=== PATIENT | female | born 1965 | race Caucasian/White ===

== ENCOUNTER 2021-03-19 06:32 | Outpatient (REF) | payer OTHER, SELFPAY ==
[2021-03-19 11:36] LABS: Estimated Average Glucose 120 mg/dL; Hemoglobin A1c % 5.8 %
[2021-03-19 11:43] LABS: Creatinine Urine 144.71 mg/dL; Microalbum/Creatinine Ratio Ur 11.7 ug/mg cr
[2021-03-19 11:50] LABS: Alanine Aminotransferase 24 U/L (0-31); Albumin Level 4.1 g/dL (3.5-5.0); Alkaline Phosphatase 76 U/L (39-117); Anion Gap 13 (12-20); Aspartate Amino Transferase 20 U/L (5-31); Bilirubin Total 0.7 mg/dL (0.0-1.0); Blood Urea Nitrogen 19 mg/dL (9-16); Calcium 9.1 mg/dL (8.4-10.2); Carbon Dioxide 28 mmol/L (22-29); Chloride 104 mmol/L (96-108); Cholesterol 206 mg/dL; Estimated Glomerular Filt Rate > 60; Glucose Random 126 mg/dL (60-115); HDL Cholesterol 37 mg/dL; LDL Cholesterol Calculated 145 mg/dl; Potassium 4.2 mmol/L (3.3-5.1); Sodium 141 mmol/L (135-145); Total Protein 6.8 g/dL (6.5-8.0); Triglycerides 123 mg/dL
== END 2021-03-19 06:33 | disposition home or self-care (01) ==
LOC: HO.HMGCLDS 06:32
PROVIDERS: PCP Internal Medicine; Visit Provider Physician Assistant
DX: E11.9 Type 2 diabetes mellitus without complications (principal); E78.5 Hyperlipidemia, unspecified; I10 Essential (primary) hypertension
CPT/HCPCS: 36415; 80053; 80061; 82043; 83036

== ENCOUNTER → 2021-07-22 09:41 | Outpatient (BNVA) | payer OTHER, SELFPAY | PROVIDERS: PCP Internal Medicine; Visit Provider Physician Assistant | DX: S80.02XA Contusion of left knee, initial encounter (principal); W18.30XA Fall on same level, unspecified, initial encounter | CPT/HCPCS: 99202 ==

== ENCOUNTER 2021-09-09 09:39 | Outpatient (REF) | payer OTHER, SELFPAY ==
[2021-09-09 12:19] LABS: Estimated Average Glucose 120 mg/dL; Hemoglobin A1c % 5.8 %
[2021-09-09 12:27] LABS: Alanine Aminotransferase 27 U/L (0-31); Albumin Level 4.1 g/dL (3.5-5.0); Alkaline Phosphatase 78 U/L (39-117); Anion Gap 15 (12-20); Aspartate Amino Transferase 20 U/L (5-31); Bilirubin Total 0.7 mg/dL (0.0-1.0); Blood Urea Nitrogen 22 mg/dL (9-16); Calcium 8.9 mg/dL (8.4-10.2); Carbon Dioxide 27 mmol/L (22-29); Chloride 104 mmol/L (96-108); Cholesterol 212 mg/dL; Estimated Glomerular Filt Rate > 60; Glucose Random 112 mg/dL (60-115); HDL Cholesterol 46 mg/dL; LDL Cholesterol Calculated 152 mg/dl; Potassium 4.6 mmol/L (3.3-5.1); Sodium 141 mmol/L (135-145); Total Protein 6.8 g/dL (6.5-8.0); Triglycerides 74 mg/dL
[2021-09-09 12:49] LABS: Creatinine Urine 193.83 mg/dL; Microalbum/Creatinine Ratio Ur 14.9 ug/mg cr
== END 2021-09-09 09:40 | disposition home or self-care (01) ==
LOC: HO.HMGCLDS 09:39
PROVIDERS: Visit Provider Physician Assistant
DX: E11.69 Type 2 diabetes mellitus with other specified complication (principal); E66.9 Obesity, unspecified
CPT/HCPCS: 36415; 80053; 80061; 82043; 83036

== ENCOUNTER 2022-07-08 06:42 | Outpatient (REF) | payer OTHER, SELFPAY ==
[2022-07-08 11:47] LABS: Estimated Average Glucose 137 mg/dL; Hemoglobin A1c % 6.4 %
== END 2022-07-08 06:43 | disposition home or self-care (01) ==
LOC: HO.HMGCLDS 06:42
PROVIDERS: PCP Internal Medicine; Visit Provider Physician Assistant
DX: R73.03 Prediabetes (principal)
CPT/HCPCS: 36415; 83036

== ENCOUNTER 2023-01-17 07:52 | Outpatient (REF) | payer OTHER, SELFPAY ==
--- NOTE | ~2023-01-17 | XR_ITS ---
EXAMINATION: Bilateral knee series CLINICAL INFORMATION: Pain in the left and right knee COMPARISON: None. TECHNIQUE: 3 views of each knee FINDINGS: Right knee: Lateral compartment severe osteoarthritis manifested by marked joint space narrowing marginal osteophytes and subchondral sclerosis. Medial compartment at least mild osteoarthritis with marginal osteophytes. Patellofemoral compartment marginal osteophytes and mild joint space narrowing indicative of mild to moderate osteoarthritis. Small joint effusion. Left knee: Medial compartment joint space narrowing marginal osteophytes indicative of osgw-vp-bhzeqlwe osteoarthritis. Lateral marginal osteophytes without joint space narrowing indicative of mild osteoarthritis. Patellofemoral compartment marginal osteophytes with probable joint space narrowing indicative of mild to moderate osteoarthritis. Small joint effusion. XR/XR knee LT 3V IMPRESSION: RIGHT KNEE: Tricompartmental osteoarthritis with degenerative changes most the lateral compartment LEFT KNEE: Tricompartmental osteoarthritis with degenerative changes most prominent in the medial compartment
--- NOTE | ~2023-01-17 | XR_ITS ---
EXAMINATION: Bilateral knee series CLINICAL INFORMATION: Pain in the left and right knee COMPARISON: None. TECHNIQUE: 3 views of each knee FINDINGS: Right knee: Lateral compartment severe osteoarthritis manifested by marked joint space narrowing marginal osteophytes and subchondral sclerosis. Medial compartment at least mild osteoarthritis with marginal osteophytes. Patellofemoral compartment marginal osteophytes and mild joint space narrowing indicative of mild to moderate osteoarthritis. Small joint effusion. Left knee: Medial compartment joint space narrowing marginal osteophytes indicative of pxcu-[id number] osteoarthritis. Lateral marginal osteophytes without joint space narrowing indicative of mild osteoarthritis. Patellofemoral compartment marginal osteophytes with probable joint space narrowing indicative of mild to moderate osteoarthritis. Small joint effusion. XR/XR knee RT 3V IMPRESSION: RIGHT KNEE: Tricompartmental osteoarthritis with degenerative changes most the lateral compartment LEFT KNEE: Tricompartmental osteoarthritis with degenerative changes most prominent in the medial compartment
== END 2023-01-17 07:53 | disposition home or self-care (01) ==
LOC: HO.HOSX 07:52
PROVIDERS: Visit Provider Orthopaedic Surgery
DX: M25.561 Pain in right knee (principal); M25.562 Pain in left knee; Z79.899 Other long term (current) drug therapy
CPT/HCPCS: 20610; 73562; J1020

== ENCOUNTER 2023-01-17 14:39 | Outpatient (AMB) | payer OTHER, SELFPAY ==
--- NOTE | 2023-01-17 14:54 | MHC.OFFVIS ---
Intake Intake Visit Reasons: [employer]- B/L Knee pain OA Intake Note: Barbara is a 58 year old female who presents today as a new patient for a evaluation of her bilateral knee pain. Patient reports off and on pain for 10 years. She states that her right knee pain is more severe than is her left. She has had both cortisone injections and viscosupplementation injections. She states that the cortisone injections gave her fairly good relief. The viscosupplementation injections gave her only mild relief. She has taken Tylenol and Aleve which gave her mild relief. Allergies No Known Allergies Allergy (Verified 01/17/23 15:01) Medication List - Last Reconciled 01/17/23 by August Merino MD azithromycin take 500 mg today (day 1), then 250 mg for 4 days (days 2-5) PO ibuprofen mg PO lisinopril 10 mg PO DAILY omeprazole 20 mg PO DAILY PFSH Social History Patient Tobacco Use Status: Former Tobacco user Physical Exam Const Other: Well-nourished well-developed very friendly female awake alert and oriented x3 in no acute distress Extrem Other: Bilateral lower extremity examination shows good capillary refill, no skin lesions noted, normal sensation light touch Right knee examination shows a minimal effusion, palpable crepitus with range of motion, pain with range of motion, range of motion from -3 degrees to 115 degrees, no instability Left knee examination shows a minimal effusion, palpable crepitus with range of motion, pain with range of motion, range of motion from -3 degrees to 115 degrees, no instability Office Procedures Joint Injection/Drain Joint Injection/Drain Primary Site: right knee Prep: site was prepped using aseptic technique Injected: 40 mg of, DepoMedrol and 1% plain lidocaine Procedure: The patient tolerated the procedure well Coding 33127 - Large joint Procedure code (CPT) selection complete Results Reviewed Results Reviewed: X-rays of the patient's right knee show severe joint space narrowing, subchondral sclerosis, no acute bony abnormalities X-rays of the patient's left knee show mild to moderate joint space narrowing, no acute bony abnormalities Assessment & Plan Assessment & Plan (1) Right knee pain: Code(s): M25.561 - Pain in right knee Plan Ms. Soriano presents with bilateral knee pains, right greater than left, due to degenerative joint disease. I had a lengthy discussion with the patient regarding the treatment options. The risks and benefits of a right knee cortisone injection were discussed at length with the patient. The patient wished to proceed with the injection. She tolerated the injection well. She will continue with her home exercise program. I also gave her a prescription for Celebrex. She will contact me prior to her follow-up appointment in 3 months should any questions or concerns arise. Feel free to call me at any time should questions regarding her orthopedic management arise. I spent 22 minutes in reviewing the patient's records and imaging studies, seeing the patient and documenting in the medical record. Orders: Orders XR knee LT 3V Today M25.562 - Pain in left knee AMB Joint Injection/Aspiration Today M25.561 - Pain in right knee XR knee RT 3V Today M25.561 - Pain in right knee Medications: New celecoxib (Celebrex) 200 mg PO DAILY PRN 30 caps 3RF pain Coding Level of Care Code New Pt Level 2 (59770) Diagnoses Right knee pain M25.561 CPT Codes Coding - 55916 Large joint: 83800 - Large joint ([id number])
== END 2023-01-17 15:23 | disposition home or self-care (01) ==
PROVIDERS: PCP Internal Medicine; Visit Provider Orthopaedic Surgery
DX: M25.561 Pain in right knee (principal)
CPT/HCPCS: 20610; 99202

== ENCOUNTER 2023-03-10 06:47 | Outpatient (REF) | payer OTHER, SELFPAY ==
[2023-03-10 11:46] LABS: Estimated Average Glucose 146 mg/dL; Hemoglobin A1c % 6.7 % (<6.0)
[2023-03-10 12:15] LABS: Alanine Aminotransferase 34 U/L (0-31); Alkaline Phosphatase 67 U/L (39-117); Anion Gap 14 (12-20); Aspartate Amino Transferase 20 U/L (5-31); Bilirubin Total 0.5 mg/dL (0.0-1.0); Blood Urea Nitrogen 22 mg/dL (9-16); Calcium 9.4 mg/dL (8.4-10.2); Carbon Dioxide 28 mmol/L (22-29); Chloride 102 mmol/L (96-108); Cholesterol 184 mg/dL (<200); Estimated Glomerular Filt Rate > 60; Glucose Random 156 mg/dL (60-115); HDL Cholesterol 41 mg/dL (>40); LDL Cholesterol Calculated 124 mg/dL (<100); Potassium 4.8 mmol/L (3.3-5.1); Sodium 139 mmol/L (135-145); Total Protein 7.1 g/dL (6.5-8.0); Triglycerides 99 mg/dL (<150)
== END 2023-03-10 06:48 | disposition home or self-care (01) ==
LOC: HO.HMGCLDS 06:47
PROVIDERS: PCP Internal Medicine; Visit Provider Internal Medicine
DX: I10 Essential (primary) hypertension (principal)
CPT/HCPCS: 36415; 80053; 80061; 83036

== ENCOUNTER 2023-06-16 07:31 | Outpatient (REF) | payer OTHER, SELFPAY ==
[2023-06-16 11:23] LABS: Estimated Average Glucose 143 mg/dL; Hemoglobin A1c % 6.6 % (<6.0)
== END 2023-06-16 07:32 | disposition home or self-care (01) ==
LOC: HO.HMGCLDS 07:31
PROVIDERS: PCP Internal Medicine; Visit Provider Internal Medicine
DX: R73.03 Prediabetes (principal)
CPT/HCPCS: 36415; 83036

== ENCOUNTER 2023-11-16 07:36 | Outpatient (REF) | payer OTHER, SELFPAY ==
[2023-11-16 10:58] LABS: Estimated Average Glucose 163 mg/dL; Hemoglobin A1C 200.0105 umol/L; Hemoglobin A1c % 7.3 % (<6.0); Total Hemoglobin (HGBA1C) 3555.3747 umol/L
== END 2023-11-16 07:37 | disposition home or self-care (01) ==
LOC: HO.HMGCLDS 07:36
PROVIDERS: PCP Internal Medicine; Visit Provider Physician Assistant
DX: R73.09 Other abnormal glucose (principal)
CPT/HCPCS: 36415; 83036

== ENCOUNTER 2024-05-17 07:14 | Outpatient (REF) | payer OTHER, SELFPAY ==
--- OUTSIDE RECORDS SUMMARY | 2024-05-17 07:17 | XMS_ITS | Clinical Summary ---
Author Organization [address] Address [address] [place] [phone] Phone Care Team Providers Care Agile Java Developer Name Role Phone She Blankenship MD Primary Care Prov ider Allergies No known active allergies Medications atorvastatin (LIPITOR) 20 mg tablet Take 1 Tablet by mouth daily. 4 Active diclofenac (VOLTAREN) 1 % topical gel Apply 4 g topically 3 times daily. 4 Active omeprazole (PriLOSEC) [address] capsule Take 1 Capsule by mouth daily. 4 Active lisinopriL (PRINIVIL,ZESTR IL) 10 mg tablet Take 1 Tablet by mouth daily. 4 Active triamcinolone acetonide (KENALOG-40) 40 mg/mL injection Inject 1 mL into the articular space once for 1 dose. 4 Active acetaminophen (TYLENOL 8 HOUR) 650 mg 8 hr tablet Take 1 Tablet by mouth every 8 hours as needed. 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 Esophageal reflux 11/13/2005 Encounters Date Type Department Care Team Description 02/27/2024 3:30 PM EST Office Visit Orthopedic Surgery - [place] [address] [place] [phone] Marina Claros NP Primary osteoarthritis of right knee (Primary Dx); Morbid obesity with BMI of 60.0-69.9, adult (CMS/[facility] V24, CMS/[facility] V28); Primary osteoarthritis of left knee from Last 3 Months Immunizations Name Administration Dates Next Due Influenza Quadravalent, MDCK , 0.5ml, preservative free (Flucelvax) 6mo and older 11/08/2022,11/11/2020 Influenza trivalent, 0.5mL, preservative free (Fluarix; FluLaval; Fluzone) ages 6mo and older (Afluria) 3 years and older 11/30/2023,10/28/2021 Influenza, Unspecified 11/08/2022 Pfizer (ages 12 & older) Bivalent, COVID-19 05/2022 Pfizer SARS-CoV-2 COVID-19, mRNA, LNP-S, preservative free 11/20/2020 Td Tetanus diptheria (Tdvax) 7yo and older 06/11 Td, Unspecified 06/12/2003 Tdap Tetanus diptheria acell ular pertussis (Boostrix; Adacel) 7yo and older 12/19/2013 Surgical History Surgery Date Site/Laterality Comments GASTRIC BYPASS 2001 PROCEDURE: PA GASTRIC RSTCV W/BYP W/SM INT RCNSTJ LIMIT ABSRPJ HERNIA REPAIR 2004 PROCEDURE: HISTORICAL HERNIA REPAIR/UMB CHOLECYSTECTOMY 1999 PROCEDURE: PA CHOLECYSTECTOMY COLONOSCOPY 2011 PROCEDURE: HISTORICAL COLONOSCOPY; COMMENT: dr vogt Medical History Medical History Date Comments Lumbago DX:Lumbago; COMM ENT: disc herniation L5-S1 Esophageal reflux 11/13/2005 DX:Esophageal reflux DJD (degenerative joint dise ase) of knee 10/28/2010 DX:DJD (degenerative joint d isease) of knee Essential (primary) hypertension DX:Essential (primary) hypertension Family History Medical History Relation Name Comments Coronary artery disease Mother Diabetes Mother Hypertension Mother Stroke Mother Breast cancer Mother's side aunt Other: cancer of breast Mother's side aunt aun t Colon cancer Neg Hx Ovarian cancer Neg Hx Uterine cancer Neg Hx Relation Name Status Comments Father Other [place] Mother (Age 63) valve repl acement then stroke Mother's side aunt Sister 1 Alive dm, HTN Sister 2 Alive dm, HTN Sister 3 Alive dm htn Social History Tobacco Use Types Packs/Day Years Used Date Smoking Tobacco: Never Smokeless Tobacco: Never Alcohol Use Standard Drinks/Week Comments No 0 (1 standard drink = 0.6 oz pur e alcohol) Comments No Sex and Gender Information Value Date Recorded Sex Assigned at Not on file Legal Sex Female 1:01 AM EST Gender Identity Not on file Sexual Orientation Not on file Obstetrics History Para Term AB IAB SAB Ectopic Multiple Livin g Live Births 0 0 0 0 Last Filed Vital Signs Vital Sign Reading Time Taken Comments Blood Pressure 153/91 11/30/2023 9:01 AM EDT Pulse 80 11/30/2023 9:01 AM EDT Temperature - - Respiratory Rate - - Oxygen Saturation - - Inhaled Oxygen Concentration - - Weight 177 kg (390 lb) 11/30/2023 8:48 AM EDT Height 165.1 cm (5' 5 ) 11/30/2023 8:48 AM EDT Body Mass Index 64.9 11/30/2023 8:48 AM EDT Plan of Treatment Upcoming Encounters Date Type Department Care Team (Late st Contact Info) Description 05/23/2024 2:30 PM EDT Office Visit Adult Medicine [address] [phone] She Blankenship MD [address] [place] [phone] 07/24/2024 8:30 AM EDT Office Visit Orth[facility] Surgery - [place] [address] [phone] Marina Claros NP [address] [phone] 11/27/2024 9:30 AM EDT Consult Bariatric Surgery - [place] [address] [phone] Ermelinda Syed PA [address] [phone] Health Maintenance Due Date Last Done Comments Hepatitis B Vaccines (1 of 3 - 19+ 3-dose series) 01/06/1984 Pneumococcal Vaccine: 50+ Years (1 of 2 - PCV) 01/06/1984 Pneumococcal Vaccine: Pediatrics (0 to 5 Years) and At-Risk Patients (6 to 64 Years) (1 of 2 - PCV) 01/06/1984 Zoster Vaccines (1 of 2) 2015 Depression Screening 01/14/2022 HIV Screening 01/14/2022 Social Influencers of Health Screening 01/14/2022 Hypertension/CHF/CAD Annual BMP Blood Test 01/15/2022 11/13/2020 COVID-19 Vaccine (2023- season) 2023 11/08/2022, 10/28/2021, 05/10/2021, Additional history exists DTaP,Tdap,and Td Vaccines (4 - Td or Tdap) 12/20/2023 12/19/2013, 06/12/2003, 06/12/2003 Cervical Cancer Screening: Pap Smear 10/20/2025 10/20/2022 Breast Cancer Screening 02/15/2026 02/15/19, 01/20/2023, 01/14/2022, Additional history exists Cholesterol Screening (Lipid Panel) 03/19/2026 03/19/2021 Colorectal Cancer Screening: FIT-DNA (Cologuard) 08/30/2026 08/31/2023, 08/31/2023, 08/31/2023 RSV Immunization Adult Patients (1 - 1-dose 75+ series) 01/06/2040 Hepatitis C Screening Completed 12/19/2013 Influenza Vaccine Completed 11/30/2023, , 11/08/2022, Additional history exists HIB Vaccines Aged Out No longer eligi ble based on patient's age to complete this topic HPV Vaccines Aged Out No longer eligi ble based on patient's age to complete this topic Hepatitis A Vaccines Aged Out No long er eligible based on patient's age to complete this topic IPV Vaccines Aged Out No longer eligi ble based on patient's age to complete this topic MMR Vaccines Aged Out No longer eligi ble based on patient's age to complete this topic Meningococcal ACWY Vaccine Aged Out N o longer eligible based on patient's age to complete this topic Meningococcal B Vaccine Aged Out No l onger eligible based on patient's age to complete this topic RSV Immunization Patients Under 20 months Aged Out No longer eligible based on patient's age to complete this topic Varicella Vaccines Aged Out No longer eligible based on patient's age to complete this topic Procedures Procedure Name Priority Date/Time Associated Diagnosis Comments PA ARTHROCENTESIS/ASP IRATION/INJECTION MAJOR JOINT/BURSA W/O U/S GUIDANCE Routine 02/27/2024 3:30 PM EST Primary osteoarthritis of right knee Primary osteoarthritis of left knee MG MAMMO DIGITAL SCREENING W CASEY BILAT Routine 02/16/2024 9:10 AM EST Encounter for screening mammogram for breast cancer FIT-DNA Routine 08/31/2023 PAP SMEAR Routine 10/20/2022 LIPID PANEL Routine 03/19/2021 ANNUAL BMP BLOOD TEST Routine 11/13/2020 HEPATITIS C SCREENING Routine 12/19/2013 from Last 3 Months or Most Recently Relevant to Health Maintenance Results * PA ARTHROCENTESIS/ASPIRATION/INJECTION MAJOR JOINT/BURSA W/O U/S GUIDANCE (02/27/2024 3:30 PM EST) Narrative Clyde Stubbs MD - 02/27/2024 3:30 PM EST Marina Claros NP ? 02/27/2024 ??4:05 PM L Inj/Asp: bilateral knee Indications: pain Details: 25 G needle, anterolateral approach Medications (Right): 40 mg triamcinolone acetonide 40 mg/mL Medications (Left): 40 mg triamcinolone acetonide 40 mg/mL Informed Consent: ??Laterality: ??Bilateral ??Relevant images/test results available and reviewed: yes ?Health status cleared: ??Yes ??Procedure/treatment, purpose, treatment alternatives, risks/potential complications and benefits explained: yes ?Patient questions answered: yes ?Patient agrees, verbalizes understanding, and wants to proceed: yes ?Consent given by: ??Patient ??Informed consent discussion completed by Physician/JOSE with patient: ?? Verbal ??Pre-procedure timeout performed: yes ?? us Marina Claros COMIC WRITER IN CLINIC/BEDSIDE ORDER PHIL Final Result * MG Mammo Digital Screening w Casey bilat (02/16/2024 9:10 AM EST) Anatomical Region Laterality Modality Breast Bilateral Mammography 02/18/2024 6:33 PM EST Impressions 02/18/2024 6:36 PM EST No mammographic evidence for malignancy. BI-RADS CATEGORY: 1 - NEGATIVE RECOMMENDATION: Screening bilateral mammogram is recommended in 1 year. Mammo Location: [facility], [address] [place] [address], [id number], . -------- FINAL REPORT -------- Dictated By: Rima Self Dictated Date: 02/18/2024 18:33 ET Assigned Physician: Rima Self Reviewed and Electronically Signed By: Rima Self Signed Date: 02/18/2024 18:36 ET Workstation ID: [id number] Transcribed By: Self Edit Transcribed Date: 02/18/2024 18:33 ET Narrative 02/18/2024 6:36 PM EST Bilateral screening mammogram. CLINICAL: 59 years old, Female, routine annual exam. COMPARISON: Prior mammograms, latest from 01/20/2023. ?? TECHNIQUE: Bilateral MLO and CC views were obtained digitally with 3-D mammogram (digital breast tomosynthesis). Computer-aided detection was utilized in evaluation of this exam (CAD). FINDINGS: There is no evidence of suspicious mass or architectural distortion. ??No worrisome calcifications are evident. ??There has been no significant change from prior exam(s). ?? BREAST DENSITY: B - There are scattered areas of fibroglandular density. Procedure Note Rima Self MD - 02/18/2024 Bilateral screening mammogram. CLINICAL: 59 years old, Female, routine annual exam. COMPARISON: Prior mammograms, latest from 01/20/2023. TECHNIQUE: Bilateral MLO and CC views were obtained digitally with 3-Dmammogram (digital breast tomosynthesis). Computer-aided detection wasutilized in evaluation of this exam (CAD). FINDINGS: There is no evidence of suspicious mass or architectural distortion. Noworrisome calcifications are evident. There has been no significantchange from prior exam(s). BREAST DENSITY: B - There are scattered areas of fibroglandular density. IMPRESSION: No mammographic evidence for malignancy. BI-RADS CATEGORY: 1 - NEGATIVE RECOMMENDATION: Screening bilateral mammogram is recommended in 1 year. Mammo Location: [facility], [address] [place] [address], [id number], . -------- FINAL REPORT -------- Dictated By: Rima Self Dictated Date: 02/18/2024 18:33 ET Assigned Physician: Rima Self Reviewed and Electronically Signed By: Rima Self Signed Date: 02/18/2024 18:36 ET Workstation ID: [id number] Transcribed By: Self Edit Transcribed Date: 02/18/2024 18:33 ET us She Blankenship MD IM BI PROCEDURES Final Result * FIT-DNA (Cologuard) (08/31/2023) Colorectal Cancer Screening: FIT-DNA (Cologuard) no interpretation , abstracted [facility] Provider HEALTH MAINTENANCE Final Result * Pap Smear (10/20/2022) [facility] Pap smear normal,abs tracted [facility] Provider HEALTH MAINTENANCE Final Result * Lipid panel (03/19/2021) [facility] LDL/HDL Ratio 0 Comment:no interpretation Triglycerides 0 mg/dL Comment:no interpretation Cholesterol 0 mg/dL Comment:no interpretation HDL 0 mg/dL Comment:no interpretation LDL Cholesterol 0 mg/dL Comment:no interpretation Blood Venous blood specimen / Unknown Result [facility] Provider LAB BLOOD ORDERABLES Shelby l Result * Annual BMP Blood Test (11/13/2020) [facility] Annual BMP Blood Test abstracted [facility] Provider HEALTH MAINTENANCE Final Result * Hepatitis C Screening (12/19/2013) [facility] Hepatitis C Screening abstracted [facility] Provider HEALTH MAINTENANCE Final Result from Last 3 Months or Most Recently Relevant to Health Maintenance Insurance [facility] Care Teams Agile Java Developer Relationship Specialty Start Date End Date She Blankenship MD [address] [place] [id number] PCP - General Internal Medicine 10/07/21
[2024-05-17 11:35] LABS: Alanine Aminotransferase 37 U/L (0-31); Alkaline Phosphatase 75 U/L (39-117); Anion Gap 15 (12-20); Aspartate Amino Transferase 28 U/L (5-31); Bilirubin Total 0.7 mg/dL (0.0-1.0); Blood Urea Nitrogen 20 mg/dL (9-16); Calcium 9.1 mg/dL (8.4-10.2); Carbon Dioxide 28 mmol/L (22-29); Chloride 103 mmol/L (96-108); Cholesterol 200 mg/dL (<200); Estimated Glomerular Filt Rate > 60; Glucose Random 209 mg/dL (60-115); HDL Cholesterol 42 mg/dL (>40); LDL Cholesterol Calculated 134 mg/dL (<100); Sodium 141 mmol/L (135-145); Total Protein 6.8 g/dL (6.5-8.0); Triglycerides 124 mg/dL (<150)
[2024-05-17 11:51] LABS: Estimated Average Glucose 183 mg/dL; Hemoglobin A1C 236.4807 umol/L; Total Hemoglobin (HGBA1C) 3708.5835 umol/L
[2024-05-17 13:36] LABS: Reflex LDLD? No
== END 2024-05-17 07:15 | disposition home or self-care (01) ==
LOC: HO.HMGCLDS 07:14
PROVIDERS: PCP Internal Medicine; Visit Provider Internal Medicine
DX: E11.9 Type 2 diabetes mellitus without complications (principal)
CPT/HCPCS: 36415; 80053; 80061; 83036

== ENCOUNTER 2024-09-13 07:01 | Outpatient (REF) | payer OTHER, SELFPAY ==
--- OUTSIDE RECORDS SUMMARY | 2024-09-13 07:03 | XMS_ITS | Clinical Summary ---
Author Organization [facility] [address] [place] [address] [place] [phone] Phone Care Team Providers Care Main Line Assembler Name Role Phone She Blankenship MD Primary Care Prov ider Allergies No known active allergies Medications triamcinolone acetonide (KENALOG-40) 40 mg/mL injection Inject 1 mL into the articular space once for 1 dose. 10/11/19 24 Active acetaminophen (TYLENOL 8 HOUR) 650 mg 8 hr tablet Take 1 Tablet by mouth every 8 hours as needed. Active MULTIVITAMIN ORAL 1 PO QD Active diclofenac (Cataflam) 50 mg tablet Take 1 tablet (50 mg total) by mouth 2 (two) times a day for 10 days. 20 each 05/22/19 25 Active atorvastatin (LIPITOR) 40 mg tablet Take 1 tablet (40 mg total) by mouth 1 (one) time each day. 90 each 3 05/24/19 25 026 Active fluticasone propionate (FLONASE) 50 mcg/actuation nasal spray Administer 2 sprays into each nostril 1 (one) time each day. Reduce to 1 spray when symptoms are controlled. 16 g 07/10/19 25 Active Ozempic 0.25 mg or 0.5 mg (2 mg/3 mL) injection pen ADMINISTER 0.25 MG UNDER THE SKIN ONCE EVERY 7 DAYS 6 mL 08/14/19 25 Active omeprazole (PriLOSEC) [address] capsule TAKE 1 CAPSULE BY MOUTH DAILY 90 capsule 08/23/19 25 Active lisinopriL (PRINIVIL,ZEST RIL) 10 mg tablet TAKE 1 TABLET BY MOUTH DAILY 90 tablet 08/23/19 25 Active semaglutide (OZEMPIC) 0.25 mg or 0.5 mg (2 mg/3 mL) injection pen Inject 0.5 mg under the skin every 7 (seven) days. 2 mL 1 09/03/19 25 Active lisinopriL (PRINIVIL,ZEST RIL) 10 mg tablet TAKE 1 TABLET BY MOUTH DAILY 90 tablet 05/28/19 25 025 Discontinued omeprazole (PriLOSEC) [address] capsule TAKE 1 CAPSULE BY MOUTH DAILY 90 capsule 05/28/19 025 Discontinued Active Problems Problem Noted Date Diagnosed Date Hyperlipidemia 11/11/2020 Assessment & Plan (05/23/2024 2:58 PM EDT): Given the patients cardiac risk profile, the patient requires an LDL cholesterol of less than 70. I have instructed the patient on the principles of a low cholesterol diet and the importance of regular exercise. Recent LDL was 134. Will increase the dose of atorvastatin to 40 mg a day. Hypertension 11/11/2020 Assessment & Plan (05/23/2024 2:58 PM EDT): The patient's antihypertensive regimen is based on their underlying medical issues. At the time of this visit, the blood pressure is borderline, currently on lisinopril 10 mg. Will continue to monitor. Prediabetes 09/26/2019 Diverticulosis 01/31/2019 Overview (12/31/2023): Per colonoscopy (Dec 2011) Internal hemorrhoids 01/31/2019 Overview (12/31/2023): Per colonoscopy (Dec 2011) Psoriasis 11/03/2011 DJD (degenerative joint disease) of knee 011 Overview (12/31/2023): Sees dr de jesus and dr landaverde Assessment & Plan (05/23/2024 2:58 PM EDT): She follows regularly with orthopedics. Recommended to do sitting exercises. 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 Esophageal reflux 11/13/2005 Encounters Date Type Department Care Team Description 08/28/2024 Telephone Orthopedic Surgery [facility] [address] [phone] Pia Katz MA RMV RENEWAL 08/26/2024 Telephone Adult Medicine [address] [phone] She Florian MD Medication Problem (Ozempic) 07/09/2024 10:30 AM EDT Office Visit [facility]In [facility] [address] [phone] Stone Murillo PA Viral URI with cough (Primary Dx) 07/02/2024 2:30 PM EDT Office Visit Orthopedic Surgery [place] [address] [phone] Marina Claros NP Primary osteoarthritis of right knee (Primary Dx); Follow-up exam; Primary osteoarthritis of left knee from Last [...] Date Site/Laterality Comments GASTRIC BYPASS 2001 PROCEDURE: [place] GASTRIC RSTCV W/BYP W/SM INT RCNSTJ LIMIT ABSRPJ HERNIA REPAIR 2004 PROCEDURE: HISTORICAL HERNIA REPAIR/UMB CHOLECYSTECTOMY 1999 PROCEDURE: OH CHOLECYSTECTOMY COLONOSCOPY 2011 PROCEDURE: HISTORICAL COLONOSCOPY; COMMENT: [...] Hx Relation Name Status Comments Father Other [place] Mother (Age 63) valve repl acement then stroke Mother's side aunt Sister 1 Alive dm, HTN Sister 2 Alive dm, HTN Sister 3 Alive dm htn Social History Tobacco Use Types Packs/Day Years Used Date Smoking Tobacco: Never Smokeless Tobacco: Never Tobacco Cessation:Counseling Given: Not Answered Alcohol Use Standard Drinks/Week Comments No 0 (1 standard drink = 0.6 oz pur e alcohol) Housing Instability Answer Date Recorde d Are you worried that in the next 2 months you may not have stable housing? No 05/21/2024 Food Access & Nutrition Answer Date Rec orded Do you have access to a vari ety of food including fruits and vegetables? Yes 05/21/2024 Access to Healthcare Answer Date Record ed Within the last 3 months, ho w many times did you visit the emergency department for your medical care? 0 05/21/2024 Health Literacy Answer Date Recorded How often do you need to hav e someone help you when you read instructions, pamphlets, or other written material from your doctor or pharmacy? Never 05/21/2024 Caregiver: How often do you need to have someone help you when you read instructions, pamphlets, or other written material from your doctor or pharmacy? Not on file 05/21/2024 Financial Risk Answer Date Recorded How hard is it for you to pa y for the very basics like food, housing, medical care, and air conditioning / heating? Not very hard 05/21/2024 Transportation Answer Date Recorded Has the lack of transportati on kept you from meetings, work, or from getting things needed for daily living? No Has the lack of transportati on kept you from medical appointments or from getting medications? No 05/21/2024 Social Isolation Answer Date Recorded How often do you feel lonely or isolated from th ose around you? Never 05/21/2024 Food Risk Answer Date Recorded Within the past 12 months we worried whether our food would run out before we got money to buy more. Never true 05/21/2024 Within the past 12 months th e food we bought just didn't last and we didn't have money to get more. Never true 05/21/2024 Dependent Care Answer Date Recorded Do you need help finding or paying for care for your loved ones. For example, child care coordinator or elderly care for an older adult? No 05/21/2024 Education Answer Date Recorded Do you think completing more education or training, like finishing a GED, going to college, or learning a trade, would be helpful for you? No 05/21/2024 Employment and Income Answer Date Recor ded During the last four weeks, have you been actively looking for work? No 05/21/2024 Living Situation Answer Date Recorded What is your living situation? 0 05/21/2024 Comments No Sex and Gender Information Value Date Recorded Sex Assigned at Not on file Legal Sex Female 1:01 AM EST Gender Identity Not on file Sexual Orientation Not on file Obstetrics History Para Term AB IAB SAB Ectopic Multiple Livin g Live Births 0 0 0 0 Last Filed Vital Signs Vital Sign Reading Time Taken Comments Blood Pressure 145/83 05/23/2024 2:20 PM EDT Pulse 92 07/09/2024 10:28 AM EDT Temperature 37.1 C (98.7 F) 05/23/2024 2:20 PM EDT Respiratory Rate 14 05/23/2024 2:20 PM EDT Oxygen Saturation 96% 07/09/2024 10:28 AM EDT Inhaled Oxygen Concentration - - Weight 181 kg (398 lb) 07/02/2024 2:20 PM EDT Height 165.1 cm (5' 5 ) 07/02/2024 2:20 PM EDT Body Mass Index 66.23 07/02/2024 2:20 PM EDT Plan of Treatment Upcoming Encounters Date Type Department Care Team (Late st Contact Info) Description 09/26/2024 11:15 AM EDT Office Visit Adult Medicine [facility] [address] [place] [phone] She Blankenship MD [address] [place] [address] 11/27/2024 9:30 AM EDT Consult Bariatric Surgery [facility] [address] [phone] Ermelinda Syed PA [address] [address] 12/03/2024 2:30 PM EDT Office Visit Orthopedic Surgery [facility] [address] [phone] Marina Claros NP [address] [address] Health Maintenance Due Date Last Done Comments Hepatitis B Vaccines (1 of 3 - 19+ 3-dose series) 01/06/1984 Pneumococcal Vaccine: 50+ Years (1 of 2 - PCV) 01/06/1984 Zoster Vaccines (1 of 2) 2015 HIV Screening 01/14/2022 Hypertension/CHF/CAD Annual BMP Blood Test 01/15/2022 11/13/2020 COVID-19 Vaccine ( season) 2023 11/08/2022, 10/28/2021, 05/10/2021, Additional history exists DTaP,Tdap,and Td Vaccines (4 - Td or Tdap) 12/20/2023 12/19/2013, 06/12/2003, 06/12/2003 Influenza Vaccine (#1) 2024 , 11/08/2022, 11/08/2022, Additional history exists Social Influencers of Health Screening 05/21/2025 05/21/2024 Cervical Cancer Screening: Pap Smear 10/20/2025 10/20/2022 Breast Cancer Screening 02/15/2026 02/15/19, 01/20/2023, 01/14/2022, Additional history exists Cholesterol Screening (Lipid Panel) 03/19/2026 03/19/2021 Colorectal Cancer Screening: FIT-DNA (Cologuard) 08/30/2026 08/31/2023, 08/31/2023, 08/31/2023 RSV Immunization Adult Patients (1 - 1-dose 75+ series) 01/06/2040 Hepatitis C Screening Completed 12/19/2013 Depression Screening Completed 05/22/2024 HIB Vaccines Aged Out No longer eligi [...] Procedure Name Priority Date/Time Associated Diagnosis Comments OH ARTHROCENTESIS/ASP IRATION/INJECTION MAJOR JOINT/BURSA W/O U/S GUIDANCE Routine 07/02/2024 2:30 PM EDT Primary osteoarthritis of right knee Primary osteoarthritis of left knee XR KNEE 4+ VIEWS BILAT Routine 07/02/2024 2:29 PM EDT Follow-up exam MG MAMMO DIGITAL SCREENING W CASEY BILAT Routine 02/16/2024 9:10 AM EST Encounter for screening mammogram for breast cancer HM FIT-DNA Routine 08/31/2023 PAP SMEAR Routine 10/20/2022 LIPID PANEL Routine 03/19/2021 ANNUAL BMP BLOOD TEST Routine 11/13/2020 HEPATITIS C SCREENING Routine 12/19/2013 from Last 3 Months or Most Recently Relevant to Health Maintenance Results * OH ARTHROCENTESIS/ASPIRATION/INJECTION MAJOR JOINT/BURSA W/O U/S GUIDANCE (07/02/2024 2:30 PM EDT) Narrative Clyde Stubbs MD - 07/02/2024 2:30 PM EDT Marina Claros NP 07/02/2024 4:12 PM L Inj/Asp: bilateral knee Indications: pain Details: 25 G needle, anterolateral approach Medications (Right): 40 mg triamcinolone acetonide 40 mg/mL; 4 mL lidocaine 1 % Medications (Left): 40 mg triamcinolone acetonide 40 mg/mL; 4 mL lidocaine 1 % Outcome: tolerated well, no immediate complications Informed Consent: Laterality: Bilateral Relevant images/test results available and reviewed: yes Health status cleared: Yes Procedure/treatment, purpose, treatment alternatives, risks/potential complications and benefits explained: yes Risk/complications/benefits details: Risks and benefits associated with the injection reviewed which can include but not limited to infection, bleeding, bruising, transient synovitis, no improvement in symptoms. Monitor blood sugars. Patient questions answered: yes Patient agrees, verbalizes understanding, and wants to proceed: yes Consent given by: Patient Informed consent discussion completed by Physician/JOSE with patient: Verbal Pre-procedure timeout performed: yes Marina Claros PAINTER HELPER IN CLINIC/BEDSIDE ORDER PHIL Final Result * XR Knee 4+ Views bilat (07/02/2024 2:29 PM EDT) Anatomical Region Laterality Modality Lower Extremities, Knee Bilateral Computed Radiography Narrative 07/02/2024 4:05 PM EDT Date of Visit: 07/02/2024 Reason for visit: Bilateral knee pain Views: AP, Lateral, Randhawa, Tribbey bilateral knee Comparison: 04/09/2023 Findings: AP view of the right knee shows severe narrowing through the lateral compartment with near [id number] articulation, subchondral sclerosis, marginal osteophytes. AP view of the left knee shows narrowing through the medial compartment, progressed from previous x-rays with subchondral sclerosis, tricompartmental marginal osteophytes. Moderate to severe degenerative changes of the patellofemoral compartments bilaterally. No acute findings. Impression: Osteoarthritis bilateral knees with progression from previous x-rays 04/09/2023 us Marina Claros PAINTER HELPER IMG XR PROCEDURES Final Result * MG Mammo Digital Screening w Casey bilat (02/16/2024 9:10 AM EST) Anatomical Region Laterality Modality Breast Bilateral Mammography 02/18/2024 6:33 PM EST Impressions 02/18/2024 6:36 PM EST No mammographic evidence for malignancy. BI-RADS CATEGORY: 1 - NEGATIVE RECOMMENDATION: Screening bilateral mammogram is recommended in 1 year. Mammo Location: [facility], [address] [place] [address], [facility], . -------- FINAL REPORT -------- Dictated By: Rima Self Dictated Date: 02/18/2024 18:33 ET Assigned Physician: Rima Self Reviewed and Electronically Signed By: Rima Self Signed Date: 02/18/2024 18:36 ET Workstation ID: [id number] Transcribed By: Self Edit Transcribed Date: 02/18/2024 [...] evidence of suspicious mass or architectural distortion. No worrisome calcifications are evident. There has been no significant change from prior exam(s). BREAST DENSITY: B - [...] is recommended in 1 year. Mammo Location: [facility], [address] [place] [address], [id number], . -------- FINAL REPORT -------- Dictated By: Rima Self Dictated Date: 02/18/2024 18:33 ET Assigned Physician: Rima Self Reviewed and Electronically Signed By: Rima Self Signed Date: 02/18/2024 18:36 ET Workstation ID: [id number] Transcribed By: Self Edit Transcribed Date: 02/18/2024 18:33 ET She Blankenship MD IMG BI PROCEDURES Final Result * FIT-DNA (Cologuard) (08/31/2023) Colorectal Cancer Screening: FIT-DNA (Cologuard) no interpretation , abstracted Historical Provider HEALTH MAINTENANCE Final Result * Pap Smear (10/20/2022) Pathologist [facility] Pap smear normal,abs tracted Historical Provider [facility] Final Result * Lipid panel (03/19/2021) [facility] LDL/HDL Ratio 0 Comment:no interpretation Triglycerides 0 mg/dL Comment:no interpretation Cholesterol 0 mg/dL Comment:no interpretation HDL 0 mg/dL Comment:no interpretation LDL Cholesterol 0 mg/dL Comment:no interpretation Blood Venous blood specimen / Unknown Historical Provider LAB BLOOD ORDERABLES Shelby l Result * Annual BMP Blood Test (11/13/2020) Pathologist [facility] Annual BMP Blood Test abstracted [facility] Provider HEALTH MAINTENANCE Final Result * Hepatitis C Screening (12/19/2013) [facility] Hepatitis C Screening abstracted Historical Provider HEALTH MAINTENANCE Final Result from Last 3 Months or Most Recently Relevant to Health Maintenance Insurance [facility] Care Teams Main Line Assembler Relationship Specialty Start Date End Date She Blankenship MD [address] [place] [address] [phone] PCP - General Internal Medicine 10/07/21
--- OUTSIDE RECORDS SUMMARY | 2024-09-13 07:03 | XMS_ITS ---
Author Name [facility] Organization Unknown History of Medication Use Medication Directions Dispensed Refills Start Date End Date Stat us atorvastatin (LIPITOR) 20 mg tablet Take 1 Tablet by mouth daily. 11/30/2023 active lisinopriL (PRINIVIL,ZESTRIL) 10 mg tablet Take 1 Tablet by mouth daily. 11/30/2023 active omeprazole (PriLOSEC) [address] capsule Take 1 Capsule by mouth daily. 11/30/2023 active triamcinolone acetonide (KENALOG-40) 40 mg/mL injection Inject 1 mL into the articular space once for 1 dose. 10/11/2023 active diclofenac (VOLTAREN) 1 % topical gel Apply 4 g topically 3 times daily. 04/18/2023 active acetaminophen (TYLENOL 8 HOUR) 650 mg 8 hr tablet Take 1 Tablet by mouth every 8 hours as needed. 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 ProblemAct C T_THSFRAN Internal hemorrhoids active 2019-01-31 ProblemAct [facility]_THSFRAN Psoriasis active 2011-11-03 ProblemAct [facility]_THSFR AN Immunizations Vaccine Date Source Lot Number Status Influenza trivalent, 0.5mL, preservative free (Fluarix; FluLaval; Fluzone) ages 6mo and older (Afluria) 3 years and older 11/30/2023 CT_BarFRMELONIE [id number] completed Influenza Quadravalent, MDCK , 0.5ml, preservative free (Flucelvax) 6mo and older 11/08/2022 CT_BarFRMELONIE [id number] completed Influenza, Unspecified 11/08/2022 CT_FRANCIE co mpleted Pfizer (ages 12 & older) Biv alent, COVID-19 11/08/2022 CT_FRANCIE completed Influenza trivalent, 0.5mL, preservative free (Fluarix; FluLaval; Fluzone) ages 6mo and older (Afluria) 3 years and older 10/28/2021 CT_ALEXANDROFRMELONIE [id number] completed Pfizer SARS-CoV-2 COVID-19, mRNA, LNP-S, preservative free 11/20/2020 CT_BarFRMELONIE [id number] completed Influenza Quadravalent, MDCK , 0.5ml, preservative free (Flucelvax) 6mo and older 11/11/2020 CT_MANJU [id number] completed Tdap Tetanus diptheria acell ular pertussis (Boostrix; Adacel) 7yo and older 12/19/2013 CT_SFRMELONIE [id number] completed Td Tetanus diptheria (Tdvax) 7yo and older 06/12/2003 CT_T HSFRAN completed Td, Unspecified 06/12/2003 CT_SFRAN completed Care Team Organization Name Specialty Phone Email Start Date End Da te [facility] She [facility] 04/12/2022 09/24/2023 [facility] Allen Nelson [facility] 02/13/202209/05 [facility] Sai PROVIDER Primary Care 12/13/202109/05
--- OUTSIDE RECORDS SUMMARY | 2024-09-13 07:03 | XMS_ITS | Patient Health Record ---
Author Organization [facility] Address [address] [place] [address] Care Team Providers Care Dough Catcher Name Role Phone Tony Quintana MD Primary Care Provider Buck Kuo Unavailable [phone] Allergies No Known Allergies Reason For Referral No Information Medications Medication SIG (Take, Route, Frequency, Duration) Notes Start Date End Date Status Omeprazole 20 MG 1 capsule 30 minutes before morning meal Orally Once a day; Duration: 30 day(s) Active Voltaren 1 % as directed External ly apply bid to left heel; Duration: 30 days 04/29/2020 Active Naproxen 500 MG 1 tablet with food o r milk as needed Orally every 12 hrs Active Physical Therapy . . . 2-3x/week; Durat ion: 3-4 weeks 04/29/2020 Active Multivitamin Active Night Splint AFO - L1930 as directed 04/29/2020 Active Social History Tobacco Use: Social History Observation Description Date Details (start date - stop date) Former Smoker NA - NA Tobacco Use/Smoking Question Answer Notes Are you a: former smoker Additional Findings: Tobacco Non-User Current no n-smoker Alcohol Screen Question Answer Notes Did you have a drink contain ing alcohol in the past year? Yes How often did you have a dri nk containing alcohol in the past year? Monthly or less (1 point) Points 1 Interpretation Negative Tobacco use other than smoking: Question Answer Notes Are you an other tobacco user? No Plan Of Treatment Pending Test Test Name Order Date X ray : Foot, left 3V 04/29/2020 Insurance Providers Payer Name Payer Address Payer Phone Subscriber Number Group Number Insured Name Patient Relationship to Insured Coverage Start Date Coverage End Date [facility] [address] [place] [address] [phone] [id number] Barbara Soriano Self - patient is the insured Medical (General) History Medical History History ICD Code Psoriasis Reflux Surgical History Surgery Date(Month/Year) gall bladder 1998 gastric bypass 2001 Hernia Repair 2004
[2024-09-13 13:01] LABS: Hemoglobin A1C 171.5601 umol/L; Total Hemoglobin (HGBA1C) 3584.2620 umol/L
== END 2024-09-13 07:02 | disposition home or self-care (01) ==
LOC: HO.HMGCLDS 07:01
PROVIDERS: PCP Internal Medicine; Visit Provider Internal Medicine
DX: E11.9 Type 2 diabetes mellitus without complications (principal)
CPT/HCPCS: 36415; 83036

== ENCOUNTER 2024-12-26 06:45 | Outpatient (REF) | payer OTHER, SELFPAY ==
--- OUTSIDE RECORDS SUMMARY | 2024-12-26 06:48 | XMS_ITS | Clinical Summary ---
Author Organization [facility] [address] [place] [address] [place] [phone] Phone Care Team Providers Care Health Social Work Professor Name Role Phone She Blankenship MD Primary Care Prov ider Allergies No known active allergies Medications acetaminophen (TYLENOL 8 HOUR) 650 mg 8 [...] 90 each 3 05/24/19 25 026 Active lisinopriL (PRINIVIL,ZEST RIL) 10 mg tablet TAKE 1 TABLET BY MOUTH DAILY 90 tablet 11/22/19 25 Active omeprazole (PriLOSEC) [address] capsule TAKE 1 CAPSULE BY MOUTH DAILY 90 capsule 11/22/19 25 Active semaglutide (Ozempic) 2 mg/dose (8 mg/3 mL) injection pen Inject 2 mg under the skin every 7 (seven) days. 3 mL 11/28/19 25 Active fluticasone propionate (FLONASE) 50 mcg/actuation nasal spray Administer 2 sprays into each nostril 1 (one) time each day. Reduce to 1 spray when symptoms are controlled. 16 g 07/10/19 25 025 Discontinued semaglutide (OZEMPIC) 1 mg/dose (4 mg/3 mL) injection pen Inject 1 mg under the skin every 7 (seven) days. 9 mL 09/27/19 25 025 Discontinued Hospital, Clinic, or Other Facility Administered Medication Ordered Dose Route Frequency Start Date End Date Status lidocaine (XYLOCAINE) 1 % injection 4 mLIndications:Primary osteoarthritis of right knee,Primary osteoarthritis of left knee 4 mL Once PRN Procedure 12/03/2024 12/03/2024 Ended lidocaine (XYLOCAINE) 1 % injection 4 mLIndications:Primary osteoarthritis of right knee,Primary osteoarthritis of left knee 4 mL Once PRN Procedure 12/03/2024 12/03/2024 Ended triamcinolone acetonide (KENALOG-40) 40 mg/mL injection 40 mgIndications:Primary osteoarthritis of right knee,Primary osteoarthritis of left knee 40 mg Once PRN Procedure 12/03/2024 12/03/2024 Ended triamcinolone acetonide (KENALOG-40) 40 mg/mL injection 40 mgIndications:Primary osteoarthritis of right knee,Primary osteoarthritis of left knee 40 mg Once PRN Procedure 12/03/2024 12/03/2024 Ended Active Problems Problem Noted Date Diagnosed Date Type 2 diabetes mellitus wit hout complication, without long-term current use of insulin ([facility] V24, [facility] V28) 09/26/2024 Assessment & Plan (09/26/2024 12:13 PM EDT): Recent A1c was 6.5. Increase Ozempic to 1mg. Patient will continue with yearly Podiatric and Ophthomologic evaluations. Will continue Angiotensin Converting Enzyme Inhibitor for renal protection. We will check a hemoglobin A1c, CMP, lipids before her next visit. Orders: Comprehensive metabolic panel; Future Hemoglobin A1c; Future Lipid panel with reflex to direct LDL; Future Hyperlipidemia 11/11/2020 Assessment & Plan (09/26/2024 11:38 AM EDT): Given the patients cardiac risk profile, the patient requires an LDL cholesterol of less than 70. I have instructed the patient on the principles of a low cholesterol diet and the importance of regular exercise. Will continue atorvastatin 40 mg a day. Orders: Comprehensive metabolic panel; Future Hemoglobin A1c; Future Lipid panel with reflex to direct LDL; Future Assessment & Plan (05/23/2024 2:58 PM EDT): Given the patients cardiac risk profile, the patient requires an LDL cholesterol of less than 70. I have instructed the patient on the principles of a low cholesterol diet and the importance of regular exercise. Recent LDL was 134. Will increase the dose of atorvastatin to 40 mg a day. Hypertension 11/11/2020 Assessment & Plan (09/26/2024 11:38 AM EDT): The patient's antihypertensive regimen is based on their underlying medical issues. At the time of this visit, the blood pressure is borderline, currently on lisinopril 10 mg. Will continue to monitor. Orders: Comprehensive metabolic panel; Future Hemoglobin A1c; Future Lipid panel with reflex to direct LDL; Future Assessment & Plan (05/23/2024 2:58 PM EDT): [...] with orthopedics. Recommended to do sitting exercises. 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 Esophageal reflux 11/13/2005 Encounters Date Type Department Care Team Description 12/03/2024 9:00 AM EDT Office Visit Orthopedic Surgery [facility] [address] [phone] Marina Claros NP Primary osteoarthritis of right knee (Primary Dx); Primary osteoarthritis of left knee 11/27/2024 9:30 AM EDT Consult Bariatric Surgery [facility] 175 [facility] [address] [place] [phone] Ermelinda Syed PA Class 3 severe obesity due to excess calories with serious comorbidity and body mass index (BMI) of 60.0 to 69.9 in adult ([facility], [facility] V28) (Primary Dx); Type 2 diabetes mellitus without complication, without long-term current use of insulin ([facility] [place], [facility] V28); Mixed hyperlipidemia; Primary hypertension 11/21/2024 Telephone Orthopedic Surgery [facility] [address] [phone] Pia Katz [place] 09/26/2024 11:15 AM EDT Office Visit Adult Medicine [address] [phone] She Blankenship MD Type 2 diabetes mellitus without complication, without long-term current use of insulin ([facility] [place], [facility] V28) (Primary Dx); Primary hypertension; Mixed hyperlipidemia; Class 3 severe obesity due to excess calories with serious comorbidity and body mass index (BMI) of 60.0 to 69.9 in adult ([facility] [place], [facility] V28) from Last 3 Months Immunizations Immunization Administration Dates Next Due Influenza Quadravalent, MDCK [...] Date Site/Laterality Comments GASTRIC BYPASS 2001 PROCEDURE: [place] GASTRIC RSTCV W/BYP W/SM INT RCNSTJ LIMIT ABSRPJ HERNIA REPAIR 2004 PROCEDURE: HISTORICAL HERNIA REPAIR/UMB CHOLECYSTECTOMY 1999 PROCEDURE: MN CHOLECYSTECTOMY COLONOSCOPY 2011 PROCEDURE: HISTORICAL COLONOSCOPY; COMMENT: [...] Hx Relation Name Status Comments Father Other [place] Mother (Age 63) valve repl acement then [...] Record ed Within the last 3 months, alejandra w many times did you visit the [...] care for your loved ones. For example, housekeeper child care or elderly care for an older adult? [...] Date Recorded What is your living situation? Unrecognized valu e 05/21/2024 Comments No Sex and Gender Information Value Date Recorded Sex Assigned at Not on file Legal Sex Female 1:01 AM EST Gender Identity Not on file Sexual Orientation Not on file Obstetrics History Para Term AB IAB SAB Ectopic Multiple Livin g Live Births 0 0 0 0 Last Filed Vital Signs Vital Sign Reading Time Taken Comments Blood Pressure 157/87 11/27/2024 9:19 AM EDT Pulse 89 11/27/2024 9:19 AM EDT Temperature 35.8 C (96.4 F) 09/26/2024 11:07 AM EDT Respiratory Rate 15 09/26/2024 11:07 AM EDT Oxygen Saturation 98% 09/26/2024 11:07 AM EDT Inhaled Oxygen Concentration - - Weight 168 kg (370 lb) 12/03/2024 8:48 AM EDT Height 162.6 cm (5' 4 ) 12/03/2024 8:48 AM EDT Body Mass Index 63.51 12/03/2024 8:48 AM EDT Plan of Treatment Upcoming Encounters Date Type Department Care Team (Late st Contact Info) Description 01/02/2025 12:00 PM EST Office Visit Adult Medicine [facility] [address] [place], [place] [phone] She Blankenship MD [address] [place], [place] 05/05/2025 10:00 AM EDT Office Visit Bariatric Surgery [facility] 175 [facility] [address] [place] [phone] Ermelinda Syed PA [address] [place] [phone] 05/06/2025 8:30 AM EDT Office Visit Orthopedic Surgery [facility] 250 175 [facility] [address] [place] [phone] Marina Claros NP [address] [phone] Health Maintenance Due Date Last Done Comments Diabetes: Annual Foot Exam 1975 Diabetes: Annual Retina Eye Exam 1975 Hepatitis B Vaccines (1 of 3 - 19+ 3-dose series) 01/06/1984 Pneumococcal Vaccine: 50+ Years (1 of 2 - PCV) 01/06/1984 RSV Immunization Adult Patients (1 - Risk 50-74 years 1-dose series) 2015 Zoster Vaccines (1 of 2) 2015 Diabetes: Annual GFR (Glomerular Filtration Rate) 11/13/2021 11/13/2020 HIV Screening 01/14/2022 Hypertension/CHF/CAD Annual BMP Blood Test 01/15/2022 11/13/2020 DTaP,Tdap,and Td Vaccines (4 - Td or Tdap) 12/20/2023 12/19/2013, 06/12/2003, 06/12/2003 Diabetes: Annual Urine Albumin-Creatinine Ratio (uACR) 09/26/2024 Diabetes: Blood Sugar Control Test (HGBA1C) 09/26/2024 06/16/2023, 06/16/2023 COVID-19 Vaccine ( season) 2024 11/08/2022, 10/28/2021, 05/10/2021, Additional history exists Influenza Vaccine (#1) 2024 , 11/08/2022, 11/08/2022, Additional history exists Social Influencers of Health Screening 05/21/2025 05/21/2024 Cervical Cancer Screening: Pap Smear 10/20/2025 10/20/2022 Breast Cancer Screening 02/15/2026 02/15/19, 01/20/2023, 01/14/2022, Additional history exists Cholesterol Screening (Lipid Panel) 03/19/2026 03/19/2021 Colorectal Cancer Screening: FIT-DNA (Cologuard) 08/30/2026 08/31/2023, 08/31/2023, 08/31/2023 Hepatitis C Screening Completed 12/19/2013 Depression Screening [...] Procedure Name Priority Date/Time Associated Diagnosis Comments MN ARTHROCENTESIS/ASPI RATION/INJECTION MAJOR JOINT/BURSA W/O U/S GUIDANCE Routine 12/03/2024 9:00 AM EDT Primary osteoarthritis of right knee Primary osteoarthritis of left knee MG MAMMO DIGITAL SCREENING W CASEY BILAT Routine 02/16/2024 9:10 AM EST Encounter for screening mammogram for breast cancer FIT-DNA Routine 08/31/2023 HEMOGLOBIN A1C Routine 06/16/2023 PAP SMEAR Routine 10/20/2022 LIPID PANEL Routine 03/19/2021 ANNUAL BMP BLOOD TEST Routine 11/13/2020 HEPATITIS C SCREENING Routine 12/19/2013 from Last 3 Months or Most Recently Relevant to Health Maintenance Results * MN ARTHROCENTESIS/ASPIRATION/INJECTION MAJOR JOINT/BURSA W/O U/S GUIDANCE (12/03/2024 9:00 AM EDT) Clyde Wilhelm MD - 12/03/2024 9:00 AM EDT Clyde Stubbs MD 12/03/2024 9:47 AM L Inj/Asp: bilateral knee Indications: pain Details: 25 G needle, anterolateral approach Medications (Right): 4 mL lidocaine 1 %; 40 mg triamcinolone acetonide 40 mg/mL Medications (Left): 4 mL lidocaine 1 %; 40 mg triamcinolone acetonide 40 mg/mL Outcome: tolerated well, no immediate complications Informed [...] Verbal Pre-procedure timeout performed: yes Marina Claros FINISHER OPERATOR IN CLINIC/BEDSIDE ORDER PHIL Final Result * MG Mammo Digital Screening w Casey bilat (02/16/2024 9:10 AM EST) Anatomical Region Laterality Modality Breast Bilateral Mammography 02/18/2024 6:33 PM EST Impressions 02/18/2024 6:36 PM EST No mammographic evidence for malignancy. BI-RADS CATEGORY: 1 - NEGATIVE RECOMMENDATION: Screening bilateral mammogram is recommended in 1 year. Mammo Location: [facility], [address] [place] [address], [phone], . -------- FINAL REPORT -------- Dictated By: Rima Self Dictated Date: 02/18/2024 18:33 ET Assigned Physician: Rima Self Reviewed and Electronically Signed By: Rima Self Signed Date: 02/18/2024 18:36 ET Workstation ID: [id number] Transcribed By: Self Edit Transcribed Date: 02/18/2024 [...] is recommended in 1 year. Mammo Location: [facility], [address] [place] [address], [phone], . -------- FINAL REPORT -------- Dictated By: Rima Self Dictated Date: 02/18/2024 18:33 ET Assigned Physician: Rima Self Reviewed and Electronically Signed By: Rima Self Signed Date: 02/18/2024 18:36 ET Workstation ID: [id number] Transcribed By: Self Edit Transcribed Date: 02/18/2024 18:33 ET Result [facility] She Blankenship MD IMG BI PROCEDURES Final Result * FIT-DNA (Cologuard) (08/31/2023) [facility] Colorectal Cancer Screening: FIT-DNA (Cologuard) no interpretation , abstracted Result [facility] Provider HEALTH MAINTENANCE Final Result * Hemoglobin A1c (06/16/2023) [facility] Hemoglobin A1C 0.0 % Comment:no interpretation Blood Venous blood specimen / Unknown Result [facility] Provider LAB BLOOD ORDERABLES Shelby l Result * Pap Smear (10/20/2022) [facility] Pap smear normal,abs tracted Result [facility] Provider HEALTH MAINTENANCE Final Result * Lipid panel (03/19/2021) [facility] LDL/HDL Ratio 0 Comment:no interpretation Triglycerides 0 mg/dL Comment:no interpretation Cholesterol 0 mg/dL Comment:no interpretation HDL 0 mg/dL Comment:no interpretation LDL Cholesterol 0 mg/dL Comment:no interpretation Blood Venous blood specimen / Unknown Historical Provider LAB BLOOD ORDERABLES Shelby l Result * Annual BMP Blood Test (11/13/2020) Pathologist [facility] Annual BMP Blood Test abstracted [facility] Provider HEALTH MAINTENANCE Final Result * Hepatitis C Screening (12/19/2013) [facility] Hepatitis C Screening abstracted [facility] Provider HEALTH MAINTENANCE Final Result from Last 3 Months or Most Recently Relevant to Health Maintenance Insurance [facility] Care Teams Health Social Work Professor Relationship Specialty Start Date End Date She Blankenship MD [address] [place] [phone] PCP - General Internal Medicine 10/07/21
--- OUTSIDE RECORDS SUMMARY | 2024-12-26 06:48 | XMS_ITS | Patient Health Record ---
Author Organization [facility] Address [address] [place] [address] Care Team Providers Care Workforce Investment Act Career Manager Name Role Phone Tony Quintana MD Primary Care Provider Buck Martinez Unavailable [phone] Allergies No Known Allergies Reason For Referral [...] Insured Coverage Start Date Coverage End Date [facility] [address] [place] [address] [phone] [id number] Barbara Soriano Self - patient is the insured Medical (General) History Medical History History ICD Code Psoriasis Reflux Surgical History Surgery Date(Month/Year) gall bladder 1998 gastric bypass 2001 Hernia Repair 2004
[2024-12-26 11:21] LABS: Alanine Aminotransferase 41 U/L (0-31); Albumin Level 4.2 g/dL (3.5-5.0); Alkaline Phosphatase 94 U/L (39-117); Anion Gap 11 (12-20); Aspartate Amino Transferase 39 U/L (5-31); Blood Urea Nitrogen 23 mg/dL (9-16); Calcium 9.4 mg/dL (8.4-10.2); Carbon Dioxide 29 mmol/L (22-29); Chloride 106 mmol/L (96-108); Cholesterol 144 mg/dL (<200); Estimated Glomerular Filt Rate > 60; HDL Cholesterol 37 mg/dL (>40); Potassium 4.7 mmol/L (3.3-5.1); Sodium 141 mmol/L (135-145); Total Protein 6.9 g/dL (6.5-8.0); Triglycerides 88 mg/dL (<150)
== END 2024-12-26 06:46 | disposition home or self-care (01) ==
LOC: HO.HMGCLDS 06:45
PROVIDERS: PCP Internal Medicine; Visit Provider Internal Medicine
DX: I10 Essential (primary) hypertension (principal); E11.9 Type 2 diabetes mellitus without complications; E78.2 Mixed hyperlipidemia
CPT/HCPCS: 36415; 80053; 80061; 83036